=== PATIENT | female | born 1960 | race African-American/Black ===

== ENCOUNTER 2018-04-01 12:11 | Inpatient (IN) | payer MEDICAID, OTHER ==
[~2018-04-01] VITALS: Ht 162.6 cm; Wt 100.8 kg
[2018-04-01 13:37] LABS: Eosinophils # (auto) 0.1 uL; Hematocrit 40.8 % (36.0-46.0)
[2018-04-01 13:38] LABS: Basophils # (auto) 0.2 uL; Eosinophils % (auto) 0.6 % (0.0-7.0); Hemoglobin 13.1 g/dL (12.2-16.2); Lymphocytes # (auto) 2.2 uL; Lymphocytes % (auto) 11.4 % (10.0-50.0); Mean Corpuscular Hemoglobin 26.1 pg (28.0-32.0); Mean Corpuscular Hgb Conc. 32.1 g/dL (32.0-36.0); Mean Corpuscular Volume 81.2 fL (80.0-100.0); Monocytes # (auto) 1.2 uL; Monocytes % (auto) 6.1 % (0.0-12.0); Neutrophils # (auto) 15.9 uL; Neutrophils % (auto) 80.9 % (37.0-80.0); Platelet Count (auto) 565 10^3/uL (140-450); Red Blood Cells 5.03 10^6/uL (4.0-5.20); Red Cell Distribution Width 19.1 % (11.8-14.3); White Blood Cell 19.7 10^3/uL (4.4-10.8)
[2018-04-01 14:08] LABS: Chloride 104 mmol/L (98-107); Potassium 3.9 mmol/L (3.5-5.1); Sodium 137 mmol/L (136-145)
[2018-04-01 14:09] LABS: Alanine Aminotransferase 18 U/L (13-56); Albumin 3.3 g/dL (3.4-5.0); Alkaline Phosphatase 147 U/L (45-117); Anion Gap 11 (5-15); Aspartate Aminotransferase 9 U/L (15-37); BUN/Creatinine Ratio 13.6; Bilirubin, Total 0.5 mg/dL (0.2-1.0); Blood Urea Nitrogen 9 mg/dL (7-18); Calcium 9.3 mg/dL (8.5-10.1); Carbon Dioxide 22 mmol/L (21-32); GFR African American 118 mL/min; GFR Non-African American 97 mL/min; Glucose 216 mg/dL (74-106); Total Protein 8.5 g/dL (6.4-8.2)
[2018-04-01] MEDS ORDERED: MORPHINE SULF INJ 2 MG/ML SYRINGE 1ML IV ONE (15:30)
[2018-04-01] MEDS ORDERED: ONDANSETRON HCL 4 MG/2 ML VIAL IV ONE (15:30)
[2018-04-01] MEDS ORDERED: SODIUM CHLORIDE 0.9% 1,000 ML IVB ONE ×2 (15:33→17:11)
[2018-04-01 16:20] LABS: Magnesium 1.9 mg/dL (1.6-2.6)
[2018-04-01 16:26] LABS: INR 0.88 (0.9-1.15); Partial Thromboplastin Time 27.3 sec (23.78-33.04); Prothrombin Time 9.5 sec (9.27-12.13)
[2018-04-01] MEDS ORDERED: metroNIDAZOLE 500MG/100ML 100 ML IV ONE (17:15)
[2018-04-01] MEDS ORDERED: cefTRIAXone 1GM/10ml IVPUSH 10 ML IV ONE (17:15)
[2018-04-01 17:58] LABS: Urine Bacteria NONE SEEN /hpf (None Seen); Urine Blood Negative /uL (Negative); Urine Mucus FEW (None Seen); Urine Specific Gravity 1.022 (1.001-1.035); Urine WBC 20 /hpf (0 - 5)
[2018-04-01] MEDS ORDERED: PROMETHAZINE HCL 25 MG/ML 1ML IV ONE (18:00)
[2018-04-01] MEDS ORDERED: BENZOCAINE (DENTAL) 20 % SPRAY 60ML MT ONE (18:15)
[2018-04-01] MEDS ORDERED: NITROGLYCERIN 0.4 MG SL TAB SL PRN (18:30)
[2018-04-01] MEDS ORDERED: MORPHINE SULF INJ 2 MG/ML SYRINGE 1ML IV PRN (18:30)
[2018-04-01] MEDS ORDERED: LABETALOL HCL 5 MG/ML ML 20ML VIAL IV PRN (18:30)
[2018-04-01] MEDS ORDERED: DEXTROSE (50%) 50ML SYRG IV PRN (18:30)
[2018-04-01] MEDS: SODIUM CHLORIDE 0.9% 1,000 ML IV SCH (18:37)
[2018-04-01] MEDS: MORPHINE SULF INJ 2 MG/ML SYRINGE 1ML IV PRN (19:39)
[2018-04-01] MEDS: ONDANSETRON HCL 4 MG/2 ML VIAL IV PRN (19:39)
[2018-04-01] MEDS: INSULIN LANTUS (GLARGINE) 1 /0.01ml (100units/ml) SC SCH (21:54)
[2018-04-01] MEDS: metroNIDAZOLE 500MG/100ML 100 ML IV SCH (21:55)
[2018-04-01 22:00] VITALS: BP 135/74
[2018-04-02] MEDS: ACCU-CHEK COMFORT CURVE STRIP VI SCH ×4 (00:17→18:11)
[2018-04-02] MEDS: InsuLIN REG 1unit/0.01ml Soln (100units/ml) SC SCH ×4 (00:18→18:11)
[2018-04-02] MEDS: ONDANSETRON HCL 4 MG/2 ML VIAL IV PRN ×4 (01:39→18:29)
[2018-04-02] MEDS: MORPHINE SULF INJ 2 MG/ML SYRINGE 1ML IV PRN ×5 (01:40→22:14)
[2018-04-02 05:00] VITALS: BP 131/75
[2018-04-02] MEDS: metroNIDAZOLE 500MG/100ML 100 ML IV SCH ×3 (05:56→20:28)
[2018-04-02 06:35] LABS: Eosinophils # (auto) 0.1 uL; Eosinophils % (auto) 0.8 % (0.0-7.0); Hemoglobin 11.5 g/dL (12.2-16.2)
[2018-04-02 06:37] LABS: Basophils # (auto) 0.1 uL; Basophils % (auto) 0.5 % (0.0-2.0); Hematocrit 36.2 % (36.0-46.0); Lymphocytes # (auto) 2.1 uL; Lymphocytes % (auto) 12.9 % (10.0-50.0); Mean Corpuscular Hemoglobin 26.3 pg (28.0-32.0); Mean Corpuscular Hgb Conc. 31.9 g/dL (32.0-36.0); Mean Corpuscular Volume 82.4 fL (80.0-100.0); Monocytes # (auto) 1.2 uL; Monocytes % (auto) 7.4 % (0.0-12.0); Neutrophils # (auto) 12.5 uL; Neutrophils % (auto) 78.4 % (37.0-80.0); Platelet Count (auto) 503 10^3/uL (140-450); Red Cell Distribution Width 18.9 % (11.8-14.3)
[2018-04-02] MEDS: INSULIN LANTUS (GLARGINE) 1 /0.01ml (100units/ml) SC SCH ×2 (06:39→22:00)
[2018-04-02 06:59] LABS: Albumin 2.7 g/dL (3.4-5.0); BUN/Creatinine Ratio 15.5; Potassium 3.9 mmol/L (3.5-5.1)
[2018-04-02 07:02] LABS: Bilirubin, Total 0.5 mg/dL (0.2-1.0); Total Protein 7.3 g/dL (6.4-8.2)
[2018-04-02] MEDS ORDERED: METO25TA62 PO (08:10)
[2018-04-02] MEDS ORDERED: METH2.5T3 PO (08:10)
[2018-04-02] MEDS ORDERED: BECL80AE9 (08:10)
[2018-04-02] MEDS ORDERED: FOLI1TAB6 PO (08:10)
[2018-04-02] MEDS ORDERED: GLI2T PO (08:10)
[2018-04-02] MEDS ORDERED: DICL-164 PO (08:10)
[2018-04-02] MEDS ORDERED: AMLO10TA2 PO (08:10)
[2018-04-02] MEDS ORDERED: LEVEMIR (08:10)
[2018-04-02] MEDS ORDERED: HYDR200T36 (08:10)
[2018-04-02] MEDS ORDERED: FERR1TAB8 PO (08:10)
[2018-04-02] MEDS ORDERED: DOCU100C8 PO (08:10)
[2018-04-02] MEDS ORDERED: ERGO1CAP6 PO (08:10)
[2018-04-02] MEDS ORDERED: BECL80AE11 (08:10)
[2018-04-02] MEDS ORDERED: PRAV20TA3 (08:10)
[2018-04-02 09:12] VITALS: BP 161/80
[2018-04-02] MEDS: cefTRIAXone 1GM/10ml IVPUSH 10 ML IV SCH (09:28)
[2018-04-02] MEDS: SODIUM CHLORIDE 0.9% 1,000 ML IV SCH (09:28)
[2018-04-02 12:03] VITALS: BP 140/78
[2018-04-02 17:13] VITALS: BP 148/79
[2018-04-02] MEDS: PROMETHAZINE HCL 25 MG/ML 1ML IV PRN (20:26)
[2018-04-02 21:59] VITALS: BP 155/87
[2018-04-03] MEDS: PROMETHAZINE HCL 25 MG/ML 1ML IV PRN ×4 (01:59→20:58)
[2018-04-03] MEDS: MORPHINE SULF INJ 2 MG/ML SYRINGE 1ML IV PRN ×4 (01:59→19:08)
[2018-04-03] MEDS: SODIUM CHLORIDE 0.9% 1,000 ML IV SCH ×2 (03:39→20:19)
[2018-04-03] MEDS: INSULIN LANTUS (GLARGINE) 1 /0.01ml (100units/ml) SC SCH ×2 (05:29→20:39)
[2018-04-03] MEDS: metroNIDAZOLE 500MG/100ML 100 ML IV SCH ×3 (05:29→20:55)
[2018-04-03] MEDS: ACCU-CHEK COMFORT CURVE STRIP VI SCH ×4 (05:30→17:58)
[2018-04-03] MEDS: InsuLIN REG 1unit/0.01ml Soln (100units/ml) SC SCH ×4 (05:30→17:58)
[2018-04-03 06:03] VITALS: BP 147/80
[2018-04-03 06:49] LABS: Eosinophils # (auto) 0.1 uL; Mean Corpuscular Hemoglobin 26.3 pg (28.0-32.0); Monocytes # (auto) 1.3 uL
[2018-04-03 07:00] LABS: Basophils # (auto) 0.1 uL; Basophils % (auto) 0.5 % (0.0-2.0); Eosinophils % (auto) 0.5 % (0.0-7.0); Hemoglobin 12.2 g/dL (12.2-16.2); Lymphocytes # (auto) 1.7 uL; Mean Corpuscular Hgb Conc. 31.4 g/dL (32.0-36.0); Mean Corpuscular Volume 83.7 fL (80.0-100.0); Monocytes % (auto) 7.7 % (0.0-12.0); Neutrophils % (auto) 81.3 % (37.0-80.0); Platelet Count (auto) 443 10^3/uL (140-450); Red Blood Cells 4.66 10^6/uL (4.0-5.20); White Blood Cell 17.2 10^3/uL (4.4-10.8)
[2018-04-03 07:19] LABS: Albumin 2.8 g/dL (3.4-5.0); BUN/Creatinine Ratio 11.9; Bilirubin, Total 0.3 mg/dL (0.2-1.0); Calcium 8.4 mg/dL (8.5-10.1); Magnesium 2.1 mg/dL (1.6-2.6); Potassium 3.7 mmol/L (3.5-5.1); Total Protein 7.7 g/dL (6.4-8.2)
[2018-04-03 08:00] VITALS: BP 154/82
[2018-04-03] MEDS: cefTRIAXone 1GM/10ml IVPUSH 10 ML IV SCH (08:12)
[2018-04-03 12:16] VITALS: BP 157/95
[2018-04-03 16:40] VITALS: BP 150/85
[2018-04-03] MEDS: PANTOPRAZOLE 40 MG/10 ML VIAL IV SCH (21:15)
[2018-04-03 22:00] VITALS: BP 126/75
[2018-04-04] MEDS: MORPHINE SULF INJ 2 MG/ML SYRINGE 1ML IV PRN ×5 (00:30→22:02)
[2018-04-04] MEDS: PROMETHAZINE HCL 25 MG/ML 1ML IV PRN ×5 (01:00→17:11)
[2018-04-04 05:28] VITALS: BP 139/80
[2018-04-04] MEDS: INSULIN LANTUS (GLARGINE) 1 /0.01ml (100units/ml) SC SCH ×2 (05:39→22:00)
[2018-04-04] MEDS: InsuLIN REG 1unit/0.01ml Soln (100units/ml) SC SCH ×5 (05:39→23:46)
[2018-04-04] MEDS: metroNIDAZOLE 500MG/100ML 100 ML IV SCH ×3 (05:39→21:30)
[2018-04-04] MEDS: ACCU-CHEK COMFORT CURVE STRIP VI SCH ×5 (05:39→23:45)
[2018-04-04 06:15] LABS: Basophils # (auto) 0.1 uL; Monocytes # (auto) 1.1 uL
[2018-04-04 06:21] LABS: Basophils % (auto) 0.4 % (0.0-2.0); Eosinophils # (auto) 0.1 uL; Eosinophils % (auto) 0.4 % (0.0-7.0); Hematocrit 39.4 % (36.0-46.0); Hemoglobin 12.2 g/dL (12.2-16.2); Lymphocytes # (auto) 1.6 uL; Lymphocytes % (auto) 9.1 % (10.0-50.0); Mean Corpuscular Hemoglobin 26.1 pg (28.0-32.0); Mean Corpuscular Volume 84.3 fL (80.0-100.0); Monocytes % (auto) 6.2 % (0.0-12.0); Neutrophils # (auto) 14.3 uL; Neutrophils % (auto) 83.9 % (37.0-80.0); Nucleated Red Blood Cells % 0.1 %; Platelet Count (auto) 490 10^3/uL (140-450); Red Blood Cells 4.68 10^6/uL (4.0-5.20); Red Cell Distribution Width 19.4 % (11.8-14.3); White Blood Cell 17.1 10^3/uL (4.4-10.8)
[2018-04-04 06:29] LABS: BUN/Creatinine Ratio 22.4; Calcium 8.3 mg/dL (8.5-10.1)
[2018-04-04] MEDS: cefTRIAXone 1GM/10ml IVPUSH 10 ML IV SCH (08:54)
[2018-04-04 09:00] VITALS: BP 148/53
[2018-04-04] MEDS: PANTOPRAZOLE 40 MG/10 ML VIAL IV SCH ×2 (10:21→21:30)
[2018-04-04] MEDS: SODIUM CHLORIDE 0.9% 1,000 ML IV SCH (13:56)
[2018-04-04 14:03] VITALS: BP 148/86
[2018-04-04] MEDS ORDERED: GASTROGRAFIN 120 ML SOL ONE (15:23)
[2018-04-04 17:24] VITALS: BP 120/83
[2018-04-04 21:27] VITALS: BP 142/86
[2018-04-05 05:25] VITALS: BP 154/76
[2018-04-05] MEDS: metroNIDAZOLE 500MG/100ML 100 ML IV SCH ×3 (05:26→21:28)
[2018-04-05] MEDS: ACCU-CHEK COMFORT CURVE STRIP VI SCH ×4 (05:52→23:56)
[2018-04-05] MEDS: InsuLIN REG 1unit/0.01ml Soln (100units/ml) SC SCH ×4 (05:52→23:56)
[2018-04-05] MEDS: INSULIN LANTUS (GLARGINE) 1 /0.01ml (100units/ml) SC SCH ×2 (05:52→22:00)
[2018-04-05] MEDS: SODIUM CHLORIDE 0.9% 1,000 ML IV SCH (05:53)
[2018-04-05 08:12] VITALS: BP 119/66
[2018-04-05] MEDS: MORPHINE SULF INJ 2 MG/ML SYRINGE 1ML IV PRN ×3 (08:50→22:19)
[2018-04-05] MEDS: PROMETHAZINE HCL 25 MG/ML 1ML IV PRN ×2 (08:51→13:23)
[2018-04-05] MEDS: PANTOPRAZOLE 40 MG/10 ML VIAL IV SCH ×2 (09:34→21:28)
[2018-04-05] MEDS: cefTRIAXone 1GM/10ml IVPUSH 10 ML IV SCH (09:34)
[2018-04-05 12:19] VITALS: BP 138/75
[2018-04-05] MEDS ORDERED: PROMETHAZINE HCL 25 MG/ML 1ML IV PRN (14:30)
[2018-04-05 17:06] VITALS: BP 140/79
[2018-04-05 17:56] LABS: Basophils # (auto) 0 uL; Basophils % (auto) 0.2 % (0.0-2.0); Eosinophils # (auto) 0.1 uL; Eosinophils % (auto) 0.5 % (0.0-7.0); Hematocrit 39.5 % (36.0-46.0); Hemoglobin 12.3 g/dL (12.2-16.2); Lymphocytes # (auto) 1.8 uL; Lymphocytes % (auto) 11.9 % (10.0-50.0); Mean Corpuscular Hgb Conc. 31.1 g/dL (32.0-36.0); Mean Corpuscular Volume 83.5 fL (80.0-100.0); Monocytes # (auto) 1.2 uL; Monocytes % (auto) 7.9 % (0.0-12.0); Neutrophils % (auto) 79.5 % (37.0-80.0); Nucleated Red Blood Cells % 0.1 %; Platelet Count (auto) 510 10^3/uL (140-450); Red Blood Cells 4.73 10^6/uL (4.0-5.20); Red Cell Distribution Width 19.6 % (11.8-14.3); White Blood Cell 15.1 10^3/uL (4.4-10.8)
[2018-04-06] VITALS (7 sets, daily range): BP systolic 130–149; BP diastolic 69–84
[2018-04-06] MEDS: MORPHINE SULF INJ 2 MG/ML SYRINGE 1ML IV PRN ×2 (03:48→10:54)
[2018-04-06] MEDS: ACCU-CHEK COMFORT CURVE STRIP VI SCH ×2 (05:55→12:39)
[2018-04-06] MEDS: InsuLIN REG 1unit/0.01ml Soln (100units/ml) SC SCH ×2 (05:55→12:39)
[2018-04-06] MEDS: SODIUM CHLORIDE 0.9% 1,000 ML IV SCH ×2 (06:15→14:07)
[2018-04-06] MEDS: metroNIDAZOLE 500MG/100ML 100 ML IV SCH ×2 (06:15→14:06)
[2018-04-06] MEDS: INSULIN LANTUS (GLARGINE) 1 /0.01ml (100units/ml) SC SCH (07:00)
[2018-04-06 07:50] LABS: Basophils # (auto) 0.1 uL; Hemoglobin 10.9 g/dL (12.2-16.2); Mean Corpuscular Volume 82.5 fL (80.0-100.0); Monocytes # (auto) 1.1 uL; Nucleated Red Blood Cells % 0.1 %; Platelet Count (auto) 481 10^3/uL (140-450); White Blood Cell 11.6 10^3/uL (4.4-10.8)
[2018-04-06 07:53] LABS: Basophils % (auto) 0.9 % (0.0-2.0); Eosinophils # (auto) 0.2 uL; Eosinophils % (auto) 1.5 % (0.0-7.0); Hematocrit 35.6 % (36.0-46.0); Lymphocytes % (auto) 17.1 % (10.0-50.0); Mean Corpuscular Hemoglobin 25.2 pg (28.0-32.0); Mean Corpuscular Hgb Conc. 30.6 g/dL (32.0-36.0); Monocytes % (auto) 9.7 % (0.0-12.0); Neutrophils # (auto) 8.2 uL; Neutrophils % (auto) 70.8 % (37.0-80.0); Red Blood Cells 4.31 10^6/uL (4.0-5.20); Red Cell Distribution Width 19.3 % (11.8-14.3)
[2018-04-06 08:04] LABS: Calcium 8.1 mg/dL (8.5-10.1); Potassium 3.2 mmol/L (3.5-5.1)
[2018-04-06] MEDS: PANTOPRAZOLE 40 MG/10 ML VIAL IV SCH (09:12)
[2018-04-06] MEDS: cefTRIAXone 1GM/10ml IVPUSH 10 ML IV SCH (09:12)
== END 2018-04-06 17:40 | disposition home or self-care (01) | DRG 720 ==
LOC: ER 12:16 → TELE 12:17 → TELE-CENTR 21:02
PROVIDERS: ADMIT Internal Medicine; ATTEND Internal Medicine
DX: A41.9 Sepsis, unspecified organism (principal); K56.51 Intestinal adhesions [bands], with partial obstruction; K92.0 Hematemesis; N28.1 Cyst of kidney, acquired; M32.9 Systemic lupus erythematosus, unspecified; T81.89XA Other complications of procedures, not elsewhere classified, initial encounter; K76.0 Fatty (change of) liver, not elsewhere classified; E11.9 Type 2 diabetes mellitus without complications; K57.30 Diverticulosis of large intestine without perforation or abscess without bleeding; N39.0 Urinary tract infection, site not specified; E66.9 Obesity, unspecified; I10 Essential (primary) hypertension; Y83.8 Other surgical procedures as the cause of abnormal reaction of the patient, or of later complication, without mention of misadventure at the time of the procedure; E78.5 Hyperlipidemia, unspecified; J44.9 Chronic obstructive pulmonary disease, unspecified; Z82.49 Family history of ischemic heart disease and other diseases of the circulatory system; Z90.710 Acquired absence of both cervix and uterus; Z88.5 Allergy status to narcotic agent; Y92.89 Other specified places as the place of occurrence of the external cause; Z79.4 Long term (current) use of insulin
CPT/HCPCS: 36415; 71045; 74018; 74176; 74250; 80048; 80053; 80061; 81001; 82150; 82962; 83036; 83605; 83690; 83735; 84132; 84443; 84484; 85025; 85610; 85730; 87040; 87086; 93005; 93306; 94761; 96361; 96365; 96375; 97163; C9113; J0696; J1815; J2405; J3490